=== PATIENT | male | born 1945 | race Caucasian/White ===

== ENCOUNTER 2020-05-17 08:36 | Inpatient (IN) | payer MEDICARE, OTHER ==
[~2020-05-17] VITALS: Ht 177.8 cm; Wt 95.3 kg
[~2020-05-17 08:36] MED LIST: ASPIRIN81 MG PO; FLONASE 0.05% N16 GM; GLIMEPIRIDE1 MG PO; GLUCOPHAGE500 MG PO; LEVAQUIN750 MG PO; LIPITOR20 MG PO; NORVASC10 MG PO; PRILOSEC OTC20 MG PO; PROVENTIL HFA6.7 GM INH
[2020-05-17 10:27] LABS: HEMOGLOBIN 15.2 gm/dl (14.0-17.5); RED BLOOD COUNT 4.67 M/UL (4.20-5.50); WHITE BLOOD COUNT 19.9 K/UL (4.5-11.0)
[2020-05-17 10:55] LABS: BUN/CREATININE RATIO 11 (0-10)
[2020-05-17] MEDS ORDERED: ALBUTEROL2.5 MG/3 M INH (17:31)
[2020-05-17] MEDS ORDERED: LOTENSIN40 MG PO (17:32)
[2020-05-17] MEDS ORDERED: TYLENOL 500 MG500 MG PO (17:33)
[2020-05-18 03:36] LABS: HEMOGLOBIN 14.3 gm/dl (14.0-17.5); RED BLOOD COUNT 4.38 M/UL (4.20-5.50); WHITE BLOOD COUNT 21.7 K/UL (4.5-11.0)
[2020-05-18 03:57] LABS: BUN/CREATININE RATIO 20 (0-10)
[2020-05-18] MEDS ORDERED: ARTIFICIAL TEA1 EACH OP (12:49)
[2020-05-19 03:57] LABS: HEMOGLOBIN 14.6 gm/dl (14.0-17.5); RED BLOOD COUNT 4.52 M/UL (4.20-5.50); WHITE BLOOD COUNT 18.2 K/UL (4.5-11.0)
[2020-05-19 04:22] LABS: BUN/CREATININE RATIO 27 (0-10)
[2020-05-20 04:58] LABS: HEMOGLOBIN 13.9 gm/dl (14.0-17.5); RED BLOOD COUNT 4.28 M/UL (4.20-5.50)
[2020-05-20 05:01] LABS: WHITE BLOOD COUNT 13.2 K/UL (4.5-11.0)
[2020-05-20 05:26] LABS: BUN/CREATININE RATIO 22 (0-10)
[2020-05-20] MEDS ORDERED: CEFUROXIME250 MG PO (12:53)
== END 2020-05-20 18:49 | disposition home or self-care (01) | DRG 872 ==
LOC: ER1 08:36 → CDU 16:59 → MED SURG 4 16:59
PROVIDERS: Emergency Medicine; Physician Assistant; ADMIT Hospitalist
DX: A41.89 Other specified sepsis (principal); N30.00 Acute cystitis without hematuria; J44.1 Chronic obstructive pulmonary disease with (acute) exacerbation; J96.11 Chronic respiratory failure with hypoxia; Z20.822 Contact with and (suspected) exposure to COVID-19; B96.1 Klebsiella pneumoniae [K. pneumoniae] as the cause of diseases classified elsewhere; R91.1 Solitary pulmonary nodule; T38.0X5A Adverse effect of glucocorticoids and synthetic analogues, initial encounter; E11.65 Type 2 diabetes mellitus with hyperglycemia; I10 Essential (primary) hypertension; G47.33 Obstructive sleep apnea (adult) (pediatric); K59.00 Constipation, unspecified; Z99.81 Dependence on supplemental oxygen; Z88.0 Allergy status to penicillin; Z82.49 Family history of ischemic heart disease and other diseases of the circulatory system; Z87.891 Personal history of nicotine dependence; Z79.84 Long term (current) use of oral hypoglycemic drugs; Z79.82 Long term (current) use of aspirin; Z79.899 Other long term (current) drug therapy
CPT/HCPCS: 36415; 36600; 71045; 80048; 80053; 80202; 81001; 82550; 82553; 82803; 82962; 83036; 83605; 83690; 83735; 83874; 83880; 84439; 84443; 84484; 85025; 85379; 87040; 87077; 87086; 87186; 93005; 94640; 94664; 94760; 96365; 96372; 96375; 96376; 99285; J0692; J0696; J2920; J2930; J3370; J7030; J7070; Q9967; U0002

== ENCOUNTER 2020-06-08 10:03 | Emergency (ER) | payer MEDICARE, OTHER ==
[~2020-06-08 10:03] MED LIST changes: +ALBUTEROL2.5 MG/3 M INH; +ARTIFICIAL TEA1 EACH OP; +CEFUROXIME250 MG PO; +LOTENSIN40 MG PO; +TYLENOL 500 MG500 MG PO
[2020-06-08] MEDS ORDERED: CEFUROXIME500 MG PO (12:07)
== END 2020-06-08 12:25 | disposition home or self-care (01) ==
LOC: ER1 10:03
DX: N39.0 Urinary tract infection, site not specified (principal); E11.9 Type 2 diabetes mellitus without complications; I10 Essential (primary) hypertension; E78.5 Hyperlipidemia, unspecified; Z88.0 Allergy status to penicillin
CPT/HCPCS: 81001; 87077; 87086; 87186; 99283

== ENCOUNTER 2020-06-23 05:08 | Emergency (ER) | payer MEDICARE, OTHER ==
[~2020-06-23 05:08] MED LIST changes: +CEFUROXIME500 MG PO
[2020-06-23] MEDS ORDERED: FLUCONAZOLE200 MG PO (06:55)
[2020-06-23] MEDS ORDERED: LEVOFLOXACIN500 MG PO (06:55)
== END 2020-06-23 07:38 | disposition home or self-care (01) ==
LOC: ER1 05:08
DX: N39.0 Urinary tract infection, site not specified (principal); R33.9 Retention of urine, unspecified; E11.9 Type 2 diabetes mellitus without complications; E78.5 Hyperlipidemia, unspecified; I10 Essential (primary) hypertension; Z88.0 Allergy status to penicillin; Z79.84 Long term (current) use of oral hypoglycemic drugs; Z87.891 Personal history of nicotine dependence
CPT/HCPCS: 51702; 81001; 87077; 87086; 87186; 99283

== ENCOUNTER → 2021-08-21 | Outpatient (CLI) | payer OTHER ==
[~2021-08-21] MED LIST changes: +FLUCONAZOLE200 MG PO; +LEVOFLOXACIN500 MG PO
== END ==
LOC: KOH-I 09:20
DX: J15.8 Pneumonia due to other specified bacteria (principal)
CPT/HCPCS: 71046